=== PATIENT | female | born 1985 | race Caucasian/White ===

== ENCOUNTER 2018-11-05 14:47 | Emergency (ER) | payer MEDICAID ==
[~2018-11-05] VITALS: Ht 144.8 cm; Wt 122.5 kg
[2018-11-05 14:58] VITALS: BP_SYST 164
[2018-11-05 15:27] LABS: BASOPHILS # (AUTO) 0.1 K/uL (0.0-0.2); BASOPHILS % (AUTO) 0.6 % (0.0-2.0); EOSINOPHILS # (AUTO) 0.2 K/uL (0.0-0.4); EOSINOPHILS % (AUTO) 1.2 % (0.0-4.0); HEMATOCRIT 41.8 % (36-48); HEMOGLOBIN 14.1 g/dL (12.0-16.0); LYMPHOCYTES # (AUTO) 4.8 K/uL (1.0-5.5); LYMPHOCYTES % (AUTO) 31.4 % (20.5-51.5); MEAN CORPUSCULAR HEMOGLOBIN 28 pg (27-31); MEAN CORPUSCULAR HGB CONC 34 % (32-36); MEAN CORPUSCULAR VOLUME 82 fL (79.0-98.0); MONOCYTES # (AUTO) 0.9 K/uL (0.0-1.0); MONOCYTES % (AUTO) 5.7 % (1.7-9.3); NEUTROPHILS # (AUTO) 9.5 K/uL (1.8-7.7); NEUTROPHILS % (AUTO) 61.1 % (40.0-70.0); PLATELET COUNT (AUTO) 304 K/uL (130-430); RED CELL DISTRIBUTION WIDTH 14.1 % (9.0-15.0); WHITE BLOOD COUNT (AUTO) 15.5 K/uL (4.8-10.8)
[2018-11-05 15:57] LABS: INR 0.9 (0.8-1.2); PROTHROMBIN TIME 9.4 SECS (9.5-12.5)
[2018-11-05 16:04] LABS: ANION GAP 6 (5-15); CHLORIDE 99 mmol/L (98-107); CREATININE 0.63 mg/dL (0.55-1.30); GLUCOSE 205 mg/dL (70-99); POTASSIUM 3.4 mmol/L (3.5-5.1); SODIUM SERUM 133 mmol/L (136-145); UREA NITROGEN, BLOOD 8 mg/dL (8-21)
[2018-11-05 16:09] LABS: ALANINE AMINOTRANSFERASE 77 U/L (12-78); ASPARTATE AMINOTRANSFERASE 66 U/L (10-37); TOTAL BILIRUBIN 0.3 mg/dL (0.0-1.0)
[2018-11-05 16:11] LABS: GFR AFRICAN AMERICAN 140 mL/min (>90)
[2018-11-05 16:14] LABS: ACETONE, SERUM NEGATIVE (NEGATIVE)
[2018-11-05 17:11] VITALS: BP_SYST 164
[2018-11-05] MEDS ORDERED: NACL 0.9% 1,000 ML IV ONE (17:15)
== END 2018-11-05 17:11 | disposition home or self-care (01) ==
LOC: SED 14:47
DX: R07.89 Other chest pain (principal); E11.9 Type 2 diabetes mellitus without complications; R03.0 Elevated blood-pressure reading, without diagnosis of hypertension
CPT/HCPCS: 36415; 71045; 80053; 81025; 82009-TC; 83036; 84484; 85025; 85610-TC; 85730-TC; 99284

== ENCOUNTER 2022-05-17 12:53 | Emergency (ER) | payer MEDICAID ==
[~2022-05-17] VITALS: Ht 162.6 cm; Wt 72.6 kg
[2022-05-17 13:00] VITALS: BP_SYST 124
--- NOTE | 2022-05-17 13:15 | NUR ---
Patient to ER bed h1 to gown for evaluation. Side rails up. Report given to SAAD LOVETT.
--- NOTE | 2022-05-17 13:20 | NUR ---
PT PRESENTS TO ED WITH CHEST PAIN WITH A PRODUCTIVE COUGH. PT STATES CHEST FEELS TIGHT HEAVY, AND FEELS LIKE MUCUS IS STUCK IN CHEST. PT STATES WHEN SHE DEEP BREATHES SHE COUGHS AND IT HURTS WITH DEEP BREATHES. VSS, NAD, RESPIRATIONS ARE EVEN UNLABORED.
--- NOTE | 2022-05-17 13:20 | NUR ---
ED DR CASTRO AT BEDSIDE ASSESSING PT
[2022-05-17] MEDS ORDERED: ZIT250 PO (13:48)
[2022-05-17] MEDS ORDERED: ALBMDI INH (13:48)
[2022-05-17] MEDS ORDERED: D-ME118S48 PO (13:48)
--- NOTE | 2022-05-17 14:13 | NUR ---
Patient given written and verbal discharge instructions and verbalizes understanding. ER MD discussed with patient the results and treatment provided. Patient in stable condition. ID arm band removed. Rx of ALBUTEROL MDI, BROMFED DM, AND AZITHROMYCIN given. Patient educated on pain management and to follow up with PMD. Opportunity for questions provided and answered. Medication side effect fact sheet provided.
== END 2022-05-17 14:13 | disposition home or self-care (01) ==
LOC: SED 12:53
DX: J40 Bronchitis, not specified as acute or chronic (principal); R09.81 Nasal congestion; R06.2 Wheezing; Z79.899 Other long term (current) drug therapy
CPT/HCPCS: 71045; 99283

== ENCOUNTER 2022-08-12 15:05 | Emergency (ER) | payer MEDICAID ==
[~2022-08-12] VITALS: Ht 144.8 cm; Wt 108.9 kg
[~2022-08-12 15:05] MED LIST: ALBMDI INH; D-ME118S48 PO; ZIT250 PO
[2022-08-12 15:37] VITALS: BP_SYST 199
--- NOTE | 2022-08-12 15:53 | NUR ---
Placed in room 07 . Placed on nurse monitoring, blood pressure machine and pulse oximeter. To gown for exam. Side rails up. Report given to ADOLFO HUTSON.
--- NOTE | 2022-08-12 16:09 | NUR ---
ER at bedside examining patient.
[2022-08-12] MEDS ORDERED: IPRATROPIUM/ALBUTEROL SULFATE 3 ML AMPUL.NEB (DUONEB) INH ONE (16:15)
--- NOTE | 2022-08-12 16:18 | NUR ---
EKG completed and given to provider
--- NOTE | 2022-08-12 16:19 | NUR ---
Blood Sugar 220 from [facility] access.
--- NOTE | 2022-08-12 16:22 | NUR ---
Respiratory therapy at bedside now
[2022-08-12 16:43] LABS: BASOPHILS # (AUTO) 0.1 K/uL (0.0-0.2); EOSINOPHILS # (AUTO) 0.3 K/uL (0.0-0.4); EOSINOPHILS % (AUTO) 1.8 % (0.0-4.0); HEMOGLOBIN 13.8 g/dL (12.0-16.0); LYMPHOCYTES # (AUTO) 3.6 K/uL (1.0-5.5); LYMPHOCYTES % (AUTO) 22.6 % (20.5-51.5); MEAN CORPUSCULAR HEMOGLOBIN 28 pg (27-31); MEAN CORPUSCULAR HGB CONC 35 % (32-36); MEAN CORPUSCULAR VOLUME 82 fL (79.0-98.0); MONOCYTES % (AUTO) 6.1 % (1.7-9.3); NEUTROPHILS # (AUTO) 10.8 K/uL (1.8-7.7); NEUTROPHILS % (AUTO) 68.5 % (40.0-70.0); PLATELET COUNT (AUTO) 320 K/uL (130-430); RED CELL DISTRIBUTION WIDTH 13.5 % (9.0-15.0); WHITE BLOOD COUNT (AUTO) 15.8 K/uL (4.8-10.8)
[2022-08-12 16:55] LABS: ANION GAP 7 (5-15); CALCIUM 8.7 mg/dL (8.4-11.0); CHLORIDE 97 mmol/L (98-107); CREATININE 0.68 mg/dL (0.55-1.30); GFR AFRICAN AMERICAN 125 mL/min (>90); GLUCOSE 234 mg/dL (70-99); UREA NITROGEN, BLOOD 10 mg/dL (8-21)
[2022-08-12 17:08] LABS: ALANINE AMINOTRANSFERASE 33 U/L (12-78); ALBUMIN 2.8 g/dL (3.4-4.8); TOTAL BILIRUBIN 0.4 mg/dL (0.0-1.0)
[2022-08-12 17:32] LABS: ASPARTATE AMINOTRANSFERASE 18 U/L (10-37)
[2022-08-12] MEDS ORDERED: PSEU120T57 PO (18:29)
[2022-08-12] MEDS ORDERED: ALBMDI INH (18:29)
[2022-08-12] MEDS ORDERED: BENZ100C92 PO (18:29)
[2022-08-12] MEDS ORDERED: PRED20TA PO (18:29)
--- NOTE | 2022-08-12 18:38 | NUR ---
Patient given written and verbal discharge instructions and verbalizes understanding. ER MD Carmichael discussed with patient the results and treatment provided. Patient in stable condition. ID arm band removed. Patient a&ox4 and stable. Rx sent to pharmacy on file. Patient educated on pain management and to follow up with PMD. Opportunity for questions provided and answered. Medication side effect fact sheet provided.
[2022-08-12 19:16] VITALS: BP_SYST 116
== END 2022-08-12 19:16 | disposition home or self-care (01) ==
LOC: SED 15:05
DX: J42 Unspecified chronic bronchitis (principal); E11.9 Type 2 diabetes mellitus without complications; I10 Essential (primary) hypertension; R05.9 Cough, unspecified; R07.9 Chest pain, unspecified; Z79.899 Other long term (current) drug therapy; Z20.822 Contact with and (suspected) exposure to COVID-19
CPT/HCPCS: 36415; 71045; 80053; 82962; 84484; 85025; 85379; 93005; 94640; 99285